=== PATIENT | female | born 1995 | race Caucasian/White ===

== ENCOUNTER 2017-01-21 23:27 | Emergency (ER) | payer OTHER ==
[~2017-01-21] VITALS: Ht 157.5 cm; Wt 138.6 kg
[~2017-01-21 23:27] MED LIST: ALBU-136 IH
[2017-01-21 23:31] VITALS: BP 140/75
--- NOTE | 2017-01-21 23:35 | NUR ---
AMBULATED TO ER BED 8
--- NOTE | 2017-01-21 23:37 | NUR ---
22 Y/O F W/C/O SOB AND NEED FOR ALBUTEROL REFILL. DRY COUGH NOTED, SLIGHTLY DIMISHED BREATH SOUNDS, 100 IN RA. NO OTHER S/S OF RESP DISTRESS NOTED. ER MD MADE AWARE.
--- NOTE | 2017-01-21 23:40 | NUR ---
Patient being evaluated by physician at bedside.
[2017-01-21] MEDS ORDERED: ALBUTEROL 0.083% 2.5 MG/3 ML NEBU INH ONE (23:45)
--- NOTE | 2017-01-22 00:21 | NUR ---
PT RESTING IN BED ON MONITOR, VSS. NO S/S OF RESP DISTRESS NOTED AT THE MOMENT.
[2017-01-22 02:16] VITALS: BP 119/78
--- NOTE | 2017-01-22 02:16 | NUR ---
Patient discharged with v/s stable. Written and verbal after care instructions given and explained. Patient alert, oriented and verbalized understanding of instructions. Ambulatory with steady gait. All questions addressed prior to discharge. ID band removed. Patient advised to follow up with PMD OR TO THIS ER IN 2-3 DAYS. Rx of ALBUTEROL given. Patient educated on indication of medication including possible reaction and side effects. Opportunity to ask questions provided and answered.
== END 2017-01-22 02:16 | disposition home or self-care (01) ==
LOC: MED 23:27
DX: J45.901 Unspecified asthma with (acute) exacerbation (principal); R03.0 Elevated blood-pressure reading, without diagnosis of hypertension; Z79.899 Other long term (current) drug therapy
CPT/HCPCS: 94640; 99283; J7613

== ENCOUNTER 2018-09-15 22:39 | Emergency (ER) | payer OTHER ==
[~2018-09-15] VITALS: Ht 157.5 cm; Wt 122.5 kg
[2018-09-15 22:41] VITALS: BP 128/69
--- NOTE | 2018-09-15 22:41 | NUR ---
TO BED # 01 AMBULATORY
--- NOTE | 2018-09-15 22:50 | NUR ---
23 y/o f presented to ED with c/o shortness of breath x 2 months. Worsening symptoms today. Per pt she said neubulizer and inhaler x4 times today with no relief. bilateral wheezing thorughout lung gonzalez. O2 saturation at 95% on room air. ERMD notified. Will continue to monitor.
[2018-09-15] MEDS ORDERED: methylPREDNISolone SS 125 MG/2 ML VIAL IM ONE (23:05)
[2018-09-15] MEDS ORDERED: ALBUTEROL SULFATE/IPRATROPIU 3 ML SOL IH ONE ×2 (23:05→23:45)
--- NOTE | 2018-09-15 23:19 | NUR ---
Respiratory Therapist at bedside for respiratory intervention.
[2018-09-16 00:15] VITALS: BP 128/69
--- NOTE | 2018-09-16 00:15 | NUR ---
Patient discharged with v/s stable. Written and verbal after care instructions given and explained. Patient alert, oriented and verbalized understanding of instructions. Ambulatory with steady gait. All questions addressed prior to discharge. ID band removed. Patient advised to follow up with PMD. Rx of ALBUTEROL AND PREDNISONE WAS given. Patient educated on indication of medication including possible reaction and side effects. Opportunity to ask questions provided and answered.
== END 2018-09-16 00:15 | disposition home or self-care (01) ==
LOC: MED 22:39
DX: J45.901 Unspecified asthma with (acute) exacerbation (principal); F12.10 Cannabis abuse, uncomplicated; Z79.899 Other long term (current) drug therapy
CPT/HCPCS: 71045; 81025; 94640; 96372; 99284; J2930; J7620; Q0092; 81002

== ENCOUNTER 2018-12-13 11:28 | Emergency (ER) | payer OTHER ==
[~2018-12-13] VITALS: Ht 172.7 cm; Wt 123.8 kg
[2018-12-13 11:32] VITALS: BP 119/78
[2018-12-13] MEDS ORDERED: PRED20TA5 PO (11:39)
--- NOTE | 2018-12-13 11:39 | NUR ---
PT AMB TO BED 8 WITH STEADY GAIT
--- NOTE | 2018-12-13 11:49 | NUR ---
PT BIB SELF FOR SOB, COUGH, SORETHROAT FOR 3 DAYS. PT HAS HX OF ASTHMA AND HAS TAKEN RX OF ALBUTEROL W/O RELEIF AND OTC ROBITUSSIN. BL BS DIMINISHED THROUGHOUT W/ INSPIRATORY WHEEZES. RR EVEN AND UNLABORED BUT PT BECOMES SOB ON EXERTION. PT LAYING IN BED SON AT BEDSIDE.
[2018-12-13] MEDS ORDERED: ALBUTEROL SULFATE/IPRATROPIU 3 ML SOL IH ONE (12:00)
[2018-12-13] MEDS ORDERED: predniSONE 20 MG TAB PO ONE (12:00)
--- NOTE | 2018-12-13 12:11 | NUR ---
ADMITTING DX: COUGH HX: ASTHMA C/O SOB AWAKE AND ALERT VERBALLY RESPONSIVE TO [employer] EDUCATION PROVIDED TO PATIENT [facility] ACKNOWLEDGEMENT ON HHN THERAPY AND RESIRATORY DRUG FOREMENTINED GIVEN ORDERED ENCOURAGED PATIENT FOR INTERMITTENT DEEP BREATHING DURING THERAPY PEAK FLOW before 255 L after 260 L
--- NOTE | 2018-12-13 12:13 | NUR ---
RT AT BEDSIDE FOR TX.
--- NOTE | 2018-12-13 12:20 | NUR ---
PT TO XRAY VIA WHEELCHAIR.
--- NOTE | 2018-12-13 12:35 | NUR ---
PT RETURNED FROM XRAY
[2018-12-13 13:11] VITALS: BP 119/78
--- NOTE | 2018-12-13 18:54 | NUR ---
Patient discharged with v/s stable. Written and verbal after care instructions given and explained. Patient alert, oriented and verbalized understanding of instructions. Ambulatory with steady gait. All questions addressed prior to discharge. ID band removed. Patient advised to follow up with PMD. Rx of ALBUTEROL,PREDNISONE given. Patient educated on indication of medication including possible reaction and side effects. Opportunity to ask questions provided and answered.
== END 2018-12-13 18:54 | disposition home or self-care (01) ==
LOC: MED 11:28
DX: J45.901 Unspecified asthma with (acute) exacerbation (principal); Z79.899 Other long term (current) drug therapy
CPT/HCPCS: 71046; 94640; 99283; J7512; J7620

== ENCOUNTER 2019-01-20 13:44 | Emergency (ER) | payer OTHER ==
[~2019-01-20] VITALS: Ht 157.5 cm; Wt 117.9 kg
[~2019-01-20 13:44] MED LIST changes: +PRED20TA5 PO
[2019-01-20 13:56] VITALS: BP 129/64
--- NOTE | 2019-01-20 14:48 | NUR ---
PT AMBULATED TO BED 08.
--- NOTE | 2019-01-20 15:17 | NUR ---
PT THROBBING FRONTAL HEADACHE, NAUSEA, AND WATERY DIARRHEA FOR 3 DAYS. DENIES TRAUMA. PT ALSO C/O COUGH X LAST NIGHT. PATIENT STATES PAIN OF 9/10 AT THIS TIME; VSS; PATIENT POSITIONED FOR COMFORT; HOB ELEVATED; BEDRAILS UP X1; BED DOWN. ER MD MADE AWARE OF PT STATUS.
[2019-01-20] MEDS ORDERED: NACL 0.9% 500 ML IV ONE (15:25)
[2019-01-20] MEDS ORDERED: KETOROLAC 30 MG/ML VIAL IVP ONE (15:25)
[2019-01-20] MEDS ORDERED: ONDANSETRON 4 MG/2 ML VIAL IVP ONE (15:25)
[2019-01-20 17:18] VITALS: BP 110/71
--- NOTE | 2019-01-20 17:18 | NUR ---
Patient discharged with v/s stable. Written and verbal after care instructions given and explained. Patient alert, oriented and verbalized understanding of instructions. Ambulatory with steady gait. All questions addressed prior to discharge. ID band removed. Patient advised to follow up with PMD. Rx of MACROBID, NAPROXEN given. Patient educated on indication of medication including possible reaction and side effects. Opportunity to ask questions provided and answered.
== END 2019-01-20 17:18 | disposition home or self-care (01) ==
LOC: MED 13:44
DX: G44.209 Tension-type headache, unspecified, not intractable (principal); N39.0 Urinary tract infection, site not specified; J45.909 Unspecified asthma, uncomplicated; Z79.899 Other long term (current) drug therapy
CPT/HCPCS: 81002; 81025; 96374; 96375; 99283; J1885; J2405; J7030

== ENCOUNTER 2019-01-30 15:06 | Emergency (ER) | payer OTHER ==
[~2019-01-30] VITALS: Ht 157.5 cm; Wt 123.1 kg
[2019-01-30 15:18] VITALS: BP 123/69
--- NOTE | 2019-01-30 15:28 | NUR ---
BIB FAMILY. AAO X4 C/O "ASTHMA ACTING UP" X3 DAYS. PT REPORTS SORE THROAT, PRODUCTIVE COUGH WITH THICK GREEN SPUTUM. PT RAN OUT OF INHALER, STILL HAS NEBULIZER TREATMENTS AT HOME. PT TX OF ALBUTEROL TODAY WITH MILD RELIEF. CLEAR EQUAL BRANDI LUNGS UPON AUSCULTATION. PT SPEAKS IN FULL CLEAR SENTENCES, 02 SAT 95% RA. PT PLACED ON PULSE OXIMETRY MONITORING. ER TO EVALUATE PT.
--- NOTE | 2019-01-30 16:16 | NUR ---
DR HURT AT BEDSIDE FOR PT EVALUATION
[2019-01-30] MEDS ORDERED: ALBUTEROL SULFATE/IPRATROPIU 3 ML SOL IH ONE (16:20)
--- NOTE | 2019-01-30 16:29 | NUR ---
RT AT BEDSIDE FOR BREATHING TX
--- NOTE | 2019-01-30 17:13 | NUR ---
AAO X4. EVEN AND UNLABORED BREATHING. COUGHING AT TIMES. NO SIGNS AND SYMPTOMS OF DISTRESS NOTED.
[2019-01-30 17:47] VITALS: BP 103/71
--- NOTE | 2019-01-30 17:47 | NUR ---
Patient discharged with v/s stable. Written and verbal after care instructions given and explained. Patient alert, oriented and verbalized understanding of instructions. Ambulatory with steady gait. All questions addressed prior to discharge. ID band removed. Patient advised to follow up with PMD. Rx of PREDNISONE AND ALBUTEROL given. Patient educated on indication of medication including possible reaction and side effects. Opportunity to ask questions provided and answered.
== END 2019-01-30 17:47 | disposition home or self-care (01) ==
LOC: MED 15:06
DX: J45.901 Unspecified asthma with (acute) exacerbation (principal); Z79.899 Other long term (current) drug therapy
CPT/HCPCS: 94640; 99283; J7620

== ENCOUNTER 2019-03-10 15:37 | Emergency (ER) | payer OTHER ==
[~2019-03-10] VITALS: Ht 157.5 cm; Wt 117.9 kg
[2019-03-10 15:41] VITALS: BP 121/67
--- NOTE | 2019-03-10 15:47 | NUR ---
PT AMB TO BED 9
--- NOTE | 2019-03-10 15:47 | NUR ---
PT ARRIVED TO ED C/O SOB X TODAY AND COUGH X 1 WEEK. PT STATES SHE RAN OUT OF HER ALBUTEROL INHALER. LUNG SOUNDS CLEAR UPPER AND WHEEZES ON LEFT LOWER LOBE. O2SAT 97% RA. VSS. NO RESP DISTRESS NOTED. NO USE OF ACCESSORY MUSCLE, CHEST RISE SYMMETRICAL. PT STATES SHE TOOK ROBUTUSSIN OTC. HAS PRODUCTIVE DRY COUGH. PATIENT POSITIONED FOR COMFORT; HOB ELEVATED; BEDRAILS UP X2; BED DOWN. ER MD MADE AWARE OF PT STATUS. NKA. PMH: ASTHMA.
--- NOTE | 2019-03-10 15:57 | NUR ---
Dr. Blanchard evaluating patient at bedside.
[2019-03-10] MEDS ORDERED: ALBUTEROL 0.083% 2.5 MG/3 ML NEBU INH ONE (16:00)
[2019-03-10] MEDS ORDERED: predniSONE 20 MG TAB PO ONE (16:00)
[2019-03-10] MEDS ORDERED: IPRATROPIUM 0.02% 0.5 MG/2.5 ML NEBU INH ONE (16:00)
--- NOTE | 2019-03-10 16:01 | NUR ---
RT AT BEDSIDE.
--- NOTE | 2019-03-10 16:02 | NUR ---
PA Kelly evaluating patient at bedside.
--- NOTE | 2019-03-10 16:51 | NUR ---
Patient discharged with v/s stable. Written and verbal after care instructions given and explained. Patient alert, oriented and verbalized understanding of instructions. Carried with steady gait. All questions addressed prior to discharge. ID band removed. Patient advised to follow up with PMD. Rx of PREDNISONE/ALBUTEROL/ given. Patient educated on indication of medication including possible reaction and side effects. Opportunity to ask questions provided and answered.
[2019-03-10 16:52] VITALS: BP 132/78
== END 2019-03-10 16:50 | disposition home or self-care (01) ==
LOC: MED 15:37
DX: J45.901 Unspecified asthma with (acute) exacerbation (principal); Z79.899 Other long term (current) drug therapy
CPT/HCPCS: 94640; 99283; J7512; J7613; J7644

== ENCOUNTER 2019-08-12 22:53 | Emergency (ER) | payer OTHER ==
[~2019-08-12] VITALS: Ht 157.5 cm; Wt 129.3 kg
[2019-08-12 22:57] VITALS: BP 110/72
[2019-08-12] MEDS ORDERED: IPRATROPIUM 0.02% 0.5 MG/2.5 ML NEBU INH ONE (23:05)
[2019-08-12] MEDS ORDERED: ALBUTEROL 0.083% 2.5 MG/3 ML NEBU INH ONE (23:05)
[2019-08-12] MEDS ORDERED: predniSONE 20 MG TAB PO ONE (23:05)
[2019-08-13 00:13] VITALS: BP 111/70
== END 2019-08-13 00:13 | disposition home or self-care (01) ==
LOC: MED 23:07
DX: J45.909 Unspecified asthma, uncomplicated (principal); Z79.899 Other long term (current) drug therapy
CPT/HCPCS: 94640; 99283; J7512; J7613; J7644

== ENCOUNTER 2019-09-19 12:21 | Emergency (ER) | payer OTHER ==
[~2019-09-19] VITALS: Ht 160 cm; Wt 107.0 kg
--- NOTE | 2019-09-19 12:22 | NUR ---
PT TO ER BED 4
--- NOTE | 2019-09-19 12:25 | NUR ---
Radha king in [facility] - 09/19/19 at 1235 by [facility] PT WHEELCHAIRED TO ER BED 11
[2019-09-19 12:29] VITALS: BP 114/66
--- NOTE | 2019-09-19 12:30 | NUR ---
MED REFILL FOR ASTHMA MEDICATIONS: ALBUTERAL, PREDNISONE. LUNGS CLEAR BILTERALLY. RR EVEN AND UNLABORED. DENIES FEVER OR COUGH. VS STABLE. PT ALERT AND AWAKE. AMBULATORY WITH STEADY GAIT.
--- NOTE | 2019-09-19 12:42 | NUR ---
Patient discharged with v/s stable. Written and verbal after care instructions given and explained reharding broncospasm. Patient alert, oriented and verbalized understanding of instructions. Ambulatory with steady gait. All questions addressed prior to discharge. ID band removed. Patient advised to follow up with PMD. Rx of albuterol inhalation aerosol, albuterol sulfate, and prenisone given. Patient educated on indication of medication including possible reaction and side effects. Opportunity to ask questions provided and answered.
== END 2019-09-19 12:42 | disposition home or self-care (01) ==
LOC: MED 12:21
DX: J45.20 Mild intermittent asthma, uncomplicated (principal); Z76.0 Encounter for issue of repeat prescription; Z79.899 Other long term (current) drug therapy
CPT/HCPCS: 99281

== ENCOUNTER 2019-11-19 11:39 | Emergency (ER) | payer OTHER ==
[~2019-11-19] VITALS: Ht 157.5 cm; Wt 122.5 kg
[2019-11-19 12:02] VITALS: BP 139/96
--- NOTE | 2019-11-19 12:06 | NUR ---
COVID SWAB DONE.
--- NOTE | 2019-11-19 12:07 | NUR ---
C/O FEVER,COUGH,HEADACHE X 2 DAYS. MOTHER HAS COVID +. TEMP 100.2, P94, R 20, O2SAT 97%, BP 139/96 AT THIS TIME. MED HX: ASTHMA
[2019-11-19 12:49] VITALS: BP 139/96
--- NOTE | 2019-11-19 12:49 | NUR ---
Patient discharged with v/s stable. Written and verbal after care instructions given and explained. Patient alert, oriented and verbalized understanding of instructions. Ambulatory with steady gait. All questions addressed prior to discharge. ID band removed. Patient advised to follow up with PMD. Rx of PROMETHAZINE 6.25MG, ACETAMINOPHEN 500MG, ZOFRAN 4MG given. Patient educated on indication of medication including possible reaction and side effects. Opportunity to ask questions provided and answered.
== END 2019-11-19 12:49 | disposition home or self-care (01) ==
LOC: MED 11:39
DX: B34.9 Viral infection, unspecified (principal); J45.909 Unspecified asthma, uncomplicated; Z20.828 Contact with and (suspected) exposure to other viral communicable diseases; Z79.899 Other long term (current) drug therapy
CPT/HCPCS: 99283; U0003

== ENCOUNTER 2020-01-03 21:29 | Emergency (ER) | payer OTHER ==
[~2020-01-03] VITALS: Ht 157.5 cm; Wt 131.5 kg
[2020-01-03 21:31] VITALS: BP 153/86
--- NOTE | 2020-01-03 21:48 | NUR ---
24 Y/O FEMALE C/O REQUEST FOR RX FOR INHALER; AT THIS MOMENT PT DENIES HAVING ANY ISSUES OR CONCERNS; DENIES N/V/D; SKIN IS PINK/WARM/DRY; AAOX4 WITH EVEN AND STEADY GAIT; LUNGS CLEAR BL; HR EVEN AND REGULAR; PT DENIES ANY FEVER, CP, SOB, OR COUGH AT THIS TIME; PATIENT STATES PAIN OF 0/10 AT THIS TIME; VSS; PATIENT POSITIONED FOR COMFORT; HOB ELEVATED; BEDRAILS UP X2; BED DOWN AND LOCKED. ER MD MADE AWARE OF PT STATUS. PMH: ASTHMA NKA
--- NOTE | 2020-01-03 21:50 | NUR ---
KYLIE DINERO AT BEDSIDE
[2020-01-03 21:57] VITALS: BP 153/86
== END 2020-01-03 22:00 | disposition home or self-care (01) ==
LOC: MED 21:29
DX: J45.909 Unspecified asthma, uncomplicated (principal); Z76.0 Encounter for issue of repeat prescription; Z79.899 Other long term (current) drug therapy
CPT/HCPCS: 99283

== ENCOUNTER 2020-01-22 18:54 | Emergency (ER) | payer OTHER ==
[~2020-01-22] VITALS: Ht 157.5 cm; Wt 117.9 kg
[2020-01-22 19:06] VITALS: BP 112/82
--- NOTE | 2020-01-22 19:10 | NUR ---
amb to bed 03
--- NOTE | 2020-01-22 19:18 | NUR ---
25 Y/O F PRESENTS TO ED C/O BL SHOULDER PAIN DURING INSPIRATORY X 2 DAYS. PT STATES THAT HER BL SHOULDERS FEELS TIGHT WHEN SHE INHALES. PT STATES THAT SHE NORMALLY FEELS LIKE THIS WHEN SHE IS HAVING AN ASTHMA ATTACK AND RELIEVES WITH PREDNISONE BUT THIS TIME NO RELIEF. AIRWAY INTACT, NO C/O SOB, FEVER, COUGH. RR EVEN AND UNLABORED. NO DEFORMITIES OBSERVED ON BL SHOULDERS. DENIES ANY INJURY IN THE AFFECTED AREA. VSS. BED LOCKED AND IN LOWEST POSITION, SIDE RAIL UP X1. WILL CONTINUE TO MONITOR. MHX: ASTHMA NKA
[2020-01-22] MEDS ORDERED: DICYCLOMINE HCL LIQUID 20 MG, ALUMINUM HYD/MAG/SIMETHICONE 30 ML, LIDOCAINE VISCOUS 2% ... PO ONE ×3 (19:25)
[2020-01-22] MEDS ORDERED: LIDOCAINE VISCOUS 2% 20 ML UDC ONE (19:26)
[2020-01-22] MEDS ORDERED: ALUMINUM HYD/MAG/SIMETHICONE 30 ML UDC ONE (19:26)
[2020-01-22] MEDS ORDERED: DICYCLOMINE HCL LIQUID 10 MG/5 ML UDC ONE (19:26)
--- NOTE | 2020-01-22 19:40 | NUR ---
PT TAKEN TO [facility] VIA WHEELCHAIR.
--- NOTE | 2020-01-22 19:49 | NUR ---
PT BACK FROM RAD VIA WHEELCHAIR.
[2020-01-22 20:50] VITALS: BP 112/82
--- NOTE | 2020-01-22 20:50 | NUR ---
Patient discharged with v/s stable. Written and verbal after care instructions given and explained. Patient alert, oriented and verbalized understanding of instructions. Ambulatory with steady gait. All questions addressed prior to discharge. ID band removed. Patient advised to follow up with PMD. Rx of FLEXERIL AND IBUPROFEN given. Patient educated on indication of medication including possible reaction and side effects. Opportunity to ask questions provided and answered.
== END 2020-01-22 20:50 | disposition home or self-care (01) ==
LOC: MED 18:54
DX: S16.1XXA Strain of muscle, fascia and tendon at neck level, initial encounter (principal); X58.XXXA Exposure to other specified factors, initial encounter; R07.89 Other chest pain; F12.10 Cannabis abuse, uncomplicated; J45.909 Unspecified asthma, uncomplicated; Y93.89 Activity, other specified; Y92.89 Other specified places as the place of occurrence of the external cause; Y99.8 Other external cause status; Z79.899 Other long term (current) drug therapy
CPT/HCPCS: 70360; 71045; 81025; 93005; 99284

== ENCOUNTER 2022-09-17 10:36 | Emergency (ER) | payer OTHER ==
[~2022-09-17] VITALS: Ht 157.5 cm; Wt 137.0 kg
[~2022-09-17 10:36] MED LIST changes: +ALBU-118 IH; -ALBU-136 IH
[2022-09-17 10:45] VITALS: BP 134/95
[2022-09-17] MEDS ORDERED: PROM118S5 PO (11:48)
[2022-09-17] MEDS ORDERED: [UNRECOGNIZED DRUG - CODE] PO (11:48)
[2022-09-17] MEDS ORDERED: ALBU0.0912 IH (11:48)
[2022-09-17] MEDS ORDERED: LIDO15SO4 PO (11:48)
--- NOTE | 2022-09-17 12:00 | NUR ---
Patient discharged with v/s stable. Written and verbal after care instructions FOR ASTHMA AND UPPER RESPIRATORY INFECTION given and explained. Patient alert, oriented and verbalized understanding of instructions. Ambulatory with steady gait. All questions addressed prior to discharge. ID band removed. Patient advised to follow up with PMD. Rx of PROMETHAZINE,PEDNISOLONE SOD PH, LIDOCAINE HCL, ALBUTERIL SULFATE given. Opportunity to ask questions provided and answered.
== END 2022-09-17 12:00 | disposition home or self-care (01) ==
LOC: MED 10:36
DX: J06.9 Acute upper respiratory infection, unspecified (principal); J45.909 Unspecified asthma, uncomplicated; Z79.899 Other long term (current) drug therapy
CPT/HCPCS: 99283

== ENCOUNTER 2024-02-26 12:25 | Emergency (ER) | payer OTHER ==
[~2024-02-26] VITALS: Ht 157.5 cm; Wt 143.1 kg
[~2024-02-26 12:25] MED LIST changes: +ALBU0.0912 IH; +LIDO15SO10 PO; +PROM118S5 PO; +[UNRECOGNIZED DRUG - CODE] PO
[2024-02-26 12:30] VITALS: BP 121/88; PULSE 71; RESP 16; TEMP 98; O2SAT 99
[2024-02-26 13:11] LABS: APPEARANCE,URINE CLEAR (CLEAR); BILIRUBIN,URINE NEGATIVE (NEGATIVE); BLOOD, URINE TRACE-I (NEGATIVE); COLOR,URINE YELLOW (YELLOW); LEUKOCYTE ESTERASE ,URINE NEGATIVE (NEGATIVE); NITRITE, URINE NEGATIVE (NEGATIVE); PROTEIN,URINE NEGATIVE (NEGATIVE); UGLUCOSE NEGATIVE (NEGATIVE); UROBILINOGEN,URINE 0.2 EU/dL (0.2 - 1)
[2024-02-26 14:28] LABS: BASOPHILS # (AUTO) 0.1 K/uL (0.00-0.22); BASOPHILS % (AUTO) 0.5 % (0.0-2.0); EOSINOPHILS # (AUTO) 0.3 K/uL (0-0.4); EOSINOPHILS % (AUTO) 2.8 % (0.0-4.0); HEMATOCRIT 37.7 % (36-48); HEMOGLOBIN 12.4 g/dL (12.0-16.0); LYMPHOCYTES # (AUTO) 2.5 K/uL (2.5-16.5); LYMPHOCYTES % (AUTO) 22.2 % (20.5-51.1); MEAN CORPUSCULAR HEMOGLOBIN 26 pg (27-31); MEAN CORPUSCULAR HGB CONC 33 g/dL (33-37); MEAN CORPUSCULAR VOLUME 79.5 fL (80-94); MONOCYTES # (AUTO) 0.5 K/uL (0.8-1.0); MONOCYTES % (AUTO) 4.3 % (1.7-9.3); NEUTROPHILS # (AUTO) 7.9 K/uL (1.8-7.7); NEUTROPHILS % (AUTO) 70.2 % (42.2-75.2); PLATELET COUNT (AUTO) 323 K/uL (140-450); RED BLOOD CELL COUNT(AUTO) 4.75 MIL/uL (4.20-5.40); RED CELL DISTRIBUTION WIDTH 14.4 % (11.6-13.7); WHITE BLOOD COUNT (AUTO) 11.3 K/uL (4.8-10.8)
[2024-02-26 14:46] LABS: ANION GAP 10.8 (8-16); CALCIUM 9.1 mg/dL (8.5-10.1); CARBON DIOXIDE 27.6 mmol/L (21-32); CREATININE 0.7 mg/dL (0.6-1.3); POTASSIUM 3.4 mmol/L (3.5-5.1)
[2024-02-26] MEDS ORDERED: KETOROLAC 30 MG/ML VIAL ONE (14:49)
[2024-02-26] MEDS ORDERED: FAMOTIDINE 20 MG/2 ML VIAL ONE (14:49)
[2024-02-26 14:54] LABS: ALBUMIN 3.6 g/dL (3.4-5.0); BILIRUBIN,DIRECT 0.1 mg/dL (0.0-0.3); TOTAL BILIRUBIN 0.5 mg/dL (0.0-1.0); TOTAL PROTEIN, SERUM 8.1 g/dL (6.4-8.2)
[2024-02-26] MEDS: FAMOTIDINE 20 MG/2 ML VIAL IVP ONE (14:57)
[2024-02-26] MEDS: KETOROLAC 30 MG/ML VIAL IVP ONE (14:58)
[2024-02-26] MEDS ORDERED: TRAM-748 PO (17:17)
[2024-02-26 18:33] VITALS: BP 126/78; PULSE 66; RESP 18; O2SAT 98
== END 2024-02-26 18:33 | disposition home or self-care (01) ==
LOC: MED 12:25
DX: N83.201 Unspecified ovarian cyst, right side (principal); J45.909 Unspecified asthma, uncomplicated; F12.90 Cannabis use, unspecified, uncomplicated; Z79.899 Other long term (current) drug therapy
CPT/HCPCS: 36415; 74176; 76856; 80048; 80076; 81003; 81025; 83690; 85025; 93976; 96374; 96375; 99285; J1885; J3490; Q0092